=== PATIENT | male | born 1990 | race Caucasian/White ===

== ENCOUNTER 2016-06-30 21:10 | Emergency (ER) | payer BC ==
[~2016-06-30] VITALS: Wt 120.2 kg
[2016-06-30] MEDS ORDERED: ANAPROX DS550 MG PO (22:15)
== END 2016-06-30 22:20 | disposition home or self-care (01) ==
LOC: ED 21:10
DX: M77.9 Enthesopathy, unspecified (principal)

== ENCOUNTER 2019-10-08 02:51 | Emergency (ER) | payer OTHER ==
[~2019-10-08] VITALS: Ht 180.3 cm; Wt 129.3 kg
[~2019-10-08 02:51] MED LIST: ANAPROX DS550 MG PO
[2019-10-08 04:32] LABS: BASO % 0.2 % (0.0-1.0); EOS # 0.1 10*3/uL (0.0-0.4); EOS % 0.5 % (1.0-4.0); HEMATOCRIT 41.3 % (42.0-52.0); LYMPH % 18.6 % (27.0-41.0); MEAN CELL VOLUME 85.2 fl (80.0-94.0); MEAN CORPUSCULAR HGB 28.5 pg (27.0-31.0); MEAN CORPUSCULAR HGB CONC 33.4 g/dl (33.0-37.0); MEAN PLATELET VOLUME 10.3 fl (9.6-12.3); MONO # 0.8 10*3/uL (0.1-1.0); MONO % 7.3 % (3.0-9.0); NEUT % 72.9 % (47.0-73.0); PLATELET COUNT AUTOMATED 239 10*3/uL (130-400); RED BLOOD COUNT 4.85 10*6/uL (4.50-5.90); RED CELL DISTRI WIDTH 11.8 % (0-14.5)
[2019-10-08 04:48] LABS: ALBUMIN 3.8 gm/dl (3.1-4.5); ALKALINE PHOSPHATASE 60 U/L (45-117); BUN 16 mg/dl (7-24); CHLORIDE 107 mmol/L (98-107); POTASSIUM 3.8 mmol/L (3.5-5.1); SGOT/AST 24 IU/L (3-35); SGPT/ALT 55 U/L (12-78); SODIUM 137 mmol/L (136-145); TOTAL PROTEIN 7.3 gm/dL (6.4-8.2)
[2019-10-08] MEDS ORDERED: NORCO 5-325 TA1 EACH PO (11:49)
== END 2019-10-08 11:54 | disposition home or self-care (01) ==
LOC: ED 02:51
PROVIDERS: Emergency Medicine
DX: M89.9 Disorder of bone, unspecified (principal); R26.89 Other abnormalities of gait and mobility

== ENCOUNTER 2023-11-04 14:44 | Emergency (ER) | payer BC ==
[~2023-11-04 14:44] MED LIST changes: +NORCO 5-325 TA1 EACH PO
[2023-11-04] MEDS ORDERED: Acetaminophen/Oxycodone 5 MG/325 MG TABLET PO ONE (15:30)
[2023-11-04] MEDS ORDERED: MELOXICAM15 MG PO (15:39)
== END 2023-11-04 16:01 | disposition home or self-care (01) ==
LOC: ED 14:44
DX: M79.651 Pain in right thigh (principal)

== ENCOUNTER 2023-11-10 19:44 | Emergency (ER) | payer BC ==
[~2023-11-10] VITALS: Ht 180.3 cm; Wt 11.3 kg
[~2023-11-10 19:44] MED LIST changes: +MELOXICAM15 MG PO
[2023-11-10] MEDS ORDERED: Dexamethasone Sodium Phospha 20 MG/5 ML VIAL IV ONE (20:10)
[2023-11-10] MEDS ORDERED: FAMOTIDINE 50 ML IV ONE (20:10)
[2023-11-10] MEDS ORDERED: EPINEPHrine Hydrochloride 1 MG/ML AMP IM ONE (20:10)
[2023-11-10 20:24] LABS: BASO % 0.2 % (0.0-1.0); EOS % 0.4 % (1.0-4.0); LYMPH # 1.8 10*3/uL (1.3-4.4); LYMPH % 17.3 % (27.0-41.0); MEAN CELL VOLUME 86.4 fl (80.0-94.0); MEAN CORPUSCULAR HGB 29.2 pg (27.0-31.0); MEAN CORPUSCULAR HGB CONC 33.8 g/dl (33.0-37.0); MEAN PLATELET VOLUME 9.7 fl (9.6-12.3); MONO # 0.7 10*3/uL (0.1-1.0); MONO % 6.5 % (3.0-9.0); NEUT # 7.7 10*3/uL (2.3-7.9); NEUT % 74.1 % (47.0-73.0); PLATELET COUNT AUTOMATED 242 10*3/uL (130-400); RED BLOOD COUNT 5.21 10*6/uL (4.50-5.90); RED CELL DISTRI WIDTH 12.1 % (0-14.5); WHITE BLOOD COUNT 10.4 10*3/uL (4.8-10.8)
[2023-11-10 20:40] LABS: BUN 12 mg/dl (9-23); CHLORIDE 105 mmol/L (98-107); POTASSIUM 3.7 mmol/L (3.4-5.1)
[2023-11-10] MEDS ORDERED: EPIPEN 2-P0.3 MG/0.3 IJ (21:22)
== END 2023-11-10 21:27 | disposition home or self-care (01) ==
LOC: ED 19:44
PROVIDERS: Internal Medicine
DX: T63.441A Toxic effect of venom of bees, accidental (unintentional), initial encounter (principal); T78.2XXA Anaphylactic shock, unspecified, initial encounter; L50.9 Urticaria, unspecified; R06.02 Shortness of breath; K13.0 Diseases of lips; Y92.89 Other specified places as the place of occurrence of the external cause; Z98.890 Other specified postprocedural states

== ENCOUNTER 2024-03-18 16:43 | Emergency (ER) | payer BC ==
[~2024-03-18] VITALS: Ht 180.3 cm; Wt 115.7 kg
[~2024-03-18 16:43] MED LIST changes: +EPIPEN 2-P0.3 MG/0.3 IJ
[2024-03-18] MEDS ORDERED: IBUPROFEN 600 MG TAB PO ONE (17:20)
[2024-03-18] MEDS ORDERED: DEXAMETHASONE 4 MG TAB PO ONE (18:50)
== END 2024-03-18 19:09 | disposition home or self-care (01) ==
LOC: ED 16:43
DX: R05.9 Cough, unspecified (principal); B97.4 Respiratory syncytial virus as the cause of diseases classified elsewhere; Z20.822 Contact with and (suspected) exposure to COVID-19; R50.9 Fever, unspecified; Z91.030 Bee allergy status; Z98.890 Other specified postprocedural states

== ENCOUNTER 2024-03-18 22:52 | Emergency (ER) | payer BC | END 2024-03-18 23:01 | disposition left against medical advice (07) | LOC: ED 22:52 | DX: R50.9 Fever, unspecified (principal); Z53.21 Procedure and treatment not carried out due to patient leaving prior to being seen by health care provider; Z98.890 Other specified postprocedural states ==